=== PATIENT | female | born 1980 | race African-American/Black ===

== ENCOUNTER 2019-06-29 11:42 | Emergency (ER) | payer SELFPAY ==
--- NOTE | 2019-06-29 12:27 | Emergency Department Report ---
Blank Doc - Documentation Documentation: 39-year-old female that presents with vaginal discharge, dysuria, and pelvic p ain. This initial assessment/diagnostic orders/clinical plan/treatment(s) is/are subject to change based on patient's health status, clinical progression and re- assessment by fellow clinical providers in the ED. Further treatment and workup at subsequent clinical providers discretion. Patient/guardians urged not to elope from the ED as their condition may be serious if not clinically assessed a nd managed. Initial orders include: 1- Patient sent to [facility] for further evaluation and treatment 2- UA 3-pelvic exam to be done
[2019-06-29 15:23] LABS: Bacteria,Urine 1+ /HPF (Negative); Bilirubin,Urine NEG (Negative); Blood,Urine MOD (Negative); Color,Urine Straw (Yellow); HCG Qualitative,Urine Negative (Negative); Mucus,Urine FEW /HPF; Protein,Urine <15 mg/dL mg/dL (Negative); Urobilinogen,Urine < 2.0 mg/dL (<2.0)
--- NOTE | 2019-06-29 15:49 | Emergency Department Report ---
ED Female HPI - General Chief complaint: Urogenital-Female Stated complaint: VAGINAL DISCOMFORT Time Seen by Provider: 06/29/19 12:25 Source: patient Mode of arrival: Ambulatory Limitations: No Limitations - History of Present Illness Initial comments: 39-year-old female presents to the emergency room complaining of brownish discharge and some suprapubic pain. Patient states that she had taken a plane [place] on Saturday and on Saturday. Patient reports that she has. Like cramps in her pelvic area. Patient reports pain is like a 4 out of 10. Patient denies any vaginal bleeding no nausea no vomiting no back pain. MD Complaint: pelvic pain Onset/Timin -: days(s) Location: suprapubic Severity: mild Severity scale (0 -10): 4 Quality: cramping Consistency: intermittent Improves with: none Are you Now?: No Last Menstrual Period: 06/13/19 EDC: 03/19/20 Associated Symptoms: vaginal discharge. denies: vaginal bleeding, abdominal pain, nausea/vomiting, fever/chills, headaches - Related Data Sexually active: No Allergies Allergy/AdvReac Type Severity Reaction Status Date / Time No Known Allergies Allergy Unverified 06/29/19 11:48 ED Review of Systems ROS: Stated complaint: VAGINAL DISCOMFORT Other details as noted in HPI Comment: All other systems reviewed and negative ED Past Medical Hx - Past Medical History Previous Medical History?: No - Surgical History Past Surgical History?: No - Social History Smoking Status: Never Smoker Substance Use Type: None ED Physical Exam - General Limitations: No Limitations ED Course Vital Signs 06/29/19 12:25 Temperature 98.4 F Pulse Rate 80 Respiratory 18 Rate Blood Pressure 139/89 O2 Sat by Pulse 100 Oximetry ED Medical Decision Making - Medical Decision Making 39-year-old female presents to the emergency room complaining of brownish discharge and some suprapubic pain. Patient states that she had taken a plane [place] on Saturday and on Saturday. Patient reports that she has. Like cramps in her pelvic area. Patient reports pain is like a 4 out of 10. Patient denies any vaginal bleeding no nausea no vomiting no back pain. Critical care attestation.: If time is entered above; I have spent that time in minutes in the direct care of this critically ill patient, excluding procedure time. ED Disposition Clinical Impression: Vaginal spotting Disposition: [id number] TO HOME OR SELFCARE Is pt being admited?: No Does the pt Need Aspirin: No Condition: Stable Instructions: Menstruation (ED) Referrals: [facility] [Provider Group] - 3-5 Days
[2019-06-29 16:07] VITALS: BP 128/90
== END 2019-06-29 16:08 | disposition home or self-care (01) ==
LOC: ED 11:42
DX: N93.9 Abnormal uterine and vaginal bleeding, unspecified (principal)
CPT/HCPCS: 81001; 81025